=== PATIENT | female | born 1935 | race Caucasian/White ===

== ENCOUNTER 2017-05-12 09:38 | Outpatient (CLI) | payer MEDICARE, BC ==
[~2017-05-12] VITALS: Ht 154.9 cm; Wt 58.2 kg
[2017-05-12] VITALS (7 sets, daily range): BP systolic 116–207; BP diastolic 59–96; PULSE 74–93; TEMP 97.8–98
[~2017-05-12 09:38] MED LIST: ALEVE 220MG220 MG PO; CARDIZEM CD 30300 MG PO; FEMARA PO; PREDNISONE10 MG PO
[2017-05-12] MEDS ORDERED: SINGULAIR 110 MG/TAB PO (10:11)
== END 2017-05-12 17:30 ==
LOC: COL.CAR 09:38
DX: M80.88XA Other osteoporosis with current pathological fracture, vertebra(e), initial encounter for fracture (principal); S22.058A Other fracture of T5-T6 vertebra, initial encounter for closed fracture; Z85.3 Personal history of malignant neoplasm of breast; Z88.1 Allergy status to other antibiotic agents; Z88.0 Allergy status to penicillin
CPT/HCPCS: J0360; J2250; J3010

== ENCOUNTER 2017-07-07 10:10 | Outpatient (CLI) | payer MEDICARE, BC ==
[2017-07-07] VITALS (8 sets, daily range): BP systolic 123–174; BP diastolic 77–104; PULSE 84–107; TEMP 98.3
[~2017-07-07] VITALS: Ht 155 cm; Wt 61.3 kg
[~2017-07-07 10:10] MED LIST changes: +PREDNISONE 5MG5 MG PO; -PREDNISONE10 MG PO; +SINGULAIR 110 MG/TAB PO
[2017-07-07] MEDS ORDERED: ARICEPT 5MG PO (11:18)
[2017-07-07] MEDS ORDERED: K-DUR 10 MEQ T10 MEQ PO (11:19)
[2017-07-07] MEDS ORDERED: COZAAR100 MG PO (11:19)
[2017-07-07] MEDS ORDERED: MURO-128 5% OP3.5 GM OP (11:20)
[2017-07-07] MEDS ORDERED: FLOVENT 44MCG I13 GM IH (11:21)
[2017-07-07] MEDS ORDERED: ADVIL200 MG PO (11:22)
[2017-07-07] MEDS ORDERED: ULTRAM 50MG TAB50 MG PO (11:23)
== END 2017-07-07 16:41 | disposition home or self-care (01) ==
LOC: COL.CAR 10:10
DX: M48.54XA Collapsed vertebra, not elsewhere classified, thoracic region, initial encounter for fracture (principal); M48.56XA Collapsed vertebra, not elsewhere classified, lumbar region, initial encounter for fracture; I10 Essential (primary) hypertension; F03.90 Unspecified dementia, unspecified severity, without behavioral disturbance, psychotic disturbance, mood disturbance, and anxiety; J45.909 Unspecified asthma, uncomplicated; Z79.52 Long term (current) use of systemic steroids; Z88.1 Allergy status to other antibiotic agents; Z90.11 Acquired absence of right breast and nipple; Z85.3 Personal history of malignant neoplasm of breast
CPT/HCPCS: C1713; J2250; J3010; J7120

== ENCOUNTER 2017-08-21 15:38 | Inpatient (IN) | payer MEDICARE, BC ==
[~2017-08-21] VITALS: Ht 154.9 cm; Wt 57.2 kg
[~2017-08-21 15:38] MED LIST changes: +ADVIL200 MG PO; +ARICEPT 5MG PO; +COZAAR100 MG PO; +FLOVENT 44MCG I13 GM IH; +K-DUR 10 MEQ T10 MEQ PO; +MURO-128 5% OP3.5 GM OP; +ULTRAM 50MG TAB50 MG PO
[2017-08-21 17:29] LABS: BASO % 0.2 % (0.0-2.0); EOS # 0.3 (0.0-0.7); EOS % 2.5 % (0-4.0); GRAN # 7.4 (1.4-6.5); GRAN % 60.6 % (42.2-75.2); HEMATOCRIT 37.5 % (37.0-47.0); HEMOGLOBIN 12.6 g/dl (12.5-16.0); LYMPH # 2.9 (1.2-3.4); MEAN CELL VOLUME 95 fl (80.0-100.0); MEAN CORPUSCULAR HEMOGLOBIN 32 pg (27.0-31.0); MEAN CORPUSCULAR HGB CONC 34 g/dl (33.0-37.0); MEAN PLATELET VOLUME 9.1 fl (7.4-10.4); MONO # 1.5 (0.1-0.6); MONO % 11.9 % (1.7-9.3); PLATELET COUNT 384 K/mm3 (130-400); RED BLOOD COUNT 3.93 M/mm3 (4.10-5.30); REDCELL DISTRIBUTION WIDTH-CV 13.4 % (11.5-14.5)
[2017-08-21 17:42] LABS: ALBUMIN 3.6 gm/dL (3.5-5.0); BILIRUBIN,TOTAL 0.2 mg/dL (0.0-1.0); C-REACTIVE PROTEIN 5.6 mg/dL (0.0-0.9); CALCIUM 8.8 mg/dL (8.4-10.2); CREATININE, serum 0.59 mg/dL (0.52-1.25); MAGNESIUM 1.8 mg/dL (1.6-2.3); PHOSPHOROUS 3.6 mg/dL (2.5-4.5); POTASSIUM 3.7 mmol/L (3.4-5.0); TOTAL PROTEIN 6.9 gm/dL (6.4-8.2)
[2017-08-21 17:57] LABS: ERYTHROCYTE SEDIMENTATION RATE 50 mm/hr (0-30)
[2017-08-21] MEDS ORDERED: K-DUR 10 MEQ T10 MEQ PO (20:29)
[2017-08-21] MEDS ORDERED: ARICEPT 5MG PO (20:29)
[2017-08-21 21:56] VITALS: BP 156/63; PULSE 59; TEMP 98.2
[2017-08-21] MEDS ORDERED: LOPRESSOR 225 MG/TAB PO (22:29)
[2017-08-21] MEDS ORDERED: FOSAMAX 70MG TA70 MG PO (22:29)
[2017-08-21] MEDS ORDERED: PROVENTIL0.09 MG/A1 IH (22:36)
[2017-08-21] MEDS ORDERED: OS-CAL 500 + D1 TAB PO (22:37)
[2017-08-21] MEDS ORDERED: TYLENOL 325MG325 MG PO (22:41)
[2017-08-21] MEDS ORDERED: NORCO 325 MG-7.1 TAB PO (22:42)
[2017-08-21 23:07] LABS: COLLECTION METHOD CLEAN CATCH
[2017-08-21 23:12] LABS: MUCOUS Present /lpf; PH 6 (5-8); SQUAMOUS EPITHELIAL 0-2 /hpf; URINE APPEARANCE Clear; URINE BACTERIA None Seen /hpf; URINE BILIRUBIN Negative (NEGATIVE); URINE BLOOD Negative (NEGATIVE); URINE COLOR Yellow; URINE GLUCOSE Negative (NEGATIVE); URINE KETONE Negative (NEGATIVE); URINE LEUKOCYTE ESTERASE Negative (NEGATIVE); URINE NITRATE Negative (NEGATIVE); URINE PROTEIN(semi-quant) Negative (NEGATIVE); URINE UROBILINOGEN Negative (NEGATIVE)
[2017-08-22 00:28] VITALS: BP 151/94; PULSE 58; TEMP 98.3
[2017-08-22 04:31] VITALS: BP 167/84; PULSE 56; TEMP 97.9
[2017-08-22 07:00] LABS: BASO # 0.1 (0.0-0.2); BASO % 0.5 % (0.0-2.0); EOS # 0.3 (0.0-0.7); EOS % 2.9 % (0-4.0); GRAN % 55.8 % (42.2-75.2); HEMATOCRIT 38.4 % (37.0-47.0); HEMOGLOBIN 12.1 g/dl (12.5-16.0); LYMPH # 2.9 (1.2-3.4); LYMPH % 26.9 % (20.0-51.0); MEAN CORPUSCULAR HEMOGLOBIN 32 pg (27.0-31.0); MEAN CORPUSCULAR HGB CONC 32 g/dl (33.0-37.0); MEAN PLATELET VOLUME 10.7 fl (7.4-10.4); MONO # 1.4 (0.1-0.6); MONO % 13.1 % (1.7-9.3); RED BLOOD COUNT 3.75 M/mm3 (4.10-5.30); REDCELL DISTRIBUTION WIDTH-CV 13.6 % (11.5-14.5)
[2017-08-22 07:06] LABS: MEAN CELL VOLUME 102 fl (80.0-100.0)
[2017-08-22 07:07] LABS: PLATELET COUNT 162 K/mm3 (130-400)
[2017-08-22 07:08] LABS: CALCIUM 8.2 mg/dL (8.4-10.2); CREATININE, serum 0.61 mg/dL (0.52-1.25); POTASSIUM 3.8 mmol/L (3.4-5.0)
[2017-08-22 07:34] VITALS: BP 158/93; PULSE 67; TEMP 97.4
[2017-08-22 16:15] VITALS: BP 110/55; PULSE 64; TEMP 97.6
[2017-08-22 19:21] VITALS: BP 158/83; PULSE 65; TEMP 97.9
[2017-08-23 00:11] VITALS: BP 147/72; PULSE 59; TEMP 98.6
[2017-08-23 04:12] VITALS: BP 154/65; PULSE 64; TEMP 98.6
[2017-08-23 06:55] LABS: BASO % 0.2 % (0.0-2.0); EOS # 0.1 (0.0-0.7); GRAN # 5.8 (1.4-6.5); LYMPH % 29.7 % (20.0-51.0); MEAN CELL VOLUME 98 fl (80.0-100.0); MEAN CORPUSCULAR HGB CONC 33 g/dl (33.0-37.0); MEAN PLATELET VOLUME 9.3 fl (7.4-10.4); MONO % 10.3 % (1.7-9.3); RED BLOOD COUNT 3.54 M/mm3 (4.10-5.30); REDCELL DISTRIBUTION WIDTH-CV 13.5 % (11.5-14.5)
[2017-08-23 06:56] LABS: HEMATOCRIT 34.5 % (37.0-47.0); HEMOGLOBIN 11.3 g/dl (12.5-16.0); MEAN CORPUSCULAR HEMOGLOBIN 32 pg (27.0-31.0); PLATELET COUNT 358 K/mm3 (130-400)
[2017-08-23 07:08] LABS: CALCIUM 8.8 mg/dL (8.4-10.2); CREATININE, serum 0.63 mg/dL (0.52-1.25); POTASSIUM 3.8 mmol/L (3.4-5.0)
[2017-08-23 07:31] VITALS: BP 156/82; PULSE 77; TEMP 98.7
[2017-08-23 16:36] VITALS: BP 154/61; PULSE 79; TEMP 98.3
[2017-08-23 19:24] VITALS: BP 178/66; PULSE 74; TEMP 97.7
[2017-08-23 23:18] VITALS: BP 150/69; PULSE 69; TEMP 98.6
[2017-08-24] VITALS (12 sets, daily range): BP systolic 126–190; BP diastolic 59–96; PULSE 73–125; TEMP 97.3–99.5
[2017-08-24 06:24] LABS: BASO % 0.3 % (0.0-2.0); EOS # 0.2 (0.0-0.7); GRAN # 6.5 (1.4-6.5); GRAN % 57.7 % (42.2-75.2); LYMPH # 3.3 (1.2-3.4); LYMPH % 28.9 % (20.0-51.0); MEAN CELL VOLUME 97 fl (80.0-100.0); MEAN CORPUSCULAR HGB CONC 33 g/dl (33.0-37.0); MEAN PLATELET VOLUME 9.6 fl (7.4-10.4); MONO # 1.2 (0.1-0.6); MONO % 10.3 % (1.7-9.3); PLATELET COUNT 341 K/mm3 (130-400); RED BLOOD COUNT 3.62 M/mm3 (4.10-5.30); REDCELL DISTRIBUTION WIDTH-CV 13.6 % (11.5-14.5)
[2017-08-24 06:25] LABS: HEMOGLOBIN 11.5 g/dl (12.5-16.0); MEAN CORPUSCULAR HEMOGLOBIN 32 pg (27.0-31.0)
[2017-08-24 06:37] LABS: CALCIUM 8.8 mg/dL (8.4-10.2); CREATININE, serum 0.6 mg/dL (0.52-1.25); POTASSIUM 3.4 mmol/L (3.4-5.0)
[2017-08-25 00:29] VITALS: BP 157/88; PULSE 86; TEMP 97.6
[2017-08-25 04:20] VITALS: BP 166/90; PULSE 91; TEMP 97.5
[2017-08-25 07:12] LABS: CREATININE, serum 0.73 mg/dL (0.52-1.25); POTASSIUM 3.5 mmol/L (3.4-5.0)
[2017-08-25 08:03] VITALS: BP 147/88; PULSE 100; TEMP 98.6
[2017-08-25 08:16] LABS: BASO # 0.1 (0.0-0.2); BASO % 0.4 % (0.0-2.0); EOS # 0.2 (0.0-0.7); EOS % 1.4 % (0-4.0); GRAN # 9.4 (1.4-6.5); GRAN % 67.5 % (42.2-75.2); HEMATOCRIT 39.9 % (37.0-47.0); HEMOGLOBIN 13.2 g/dl (12.5-16.0); LYMPH # 2.6 (1.2-3.4); LYMPH % 18.9 % (20.0-51.0); MEAN CELL VOLUME 97 fl (80.0-100.0); MEAN CORPUSCULAR HEMOGLOBIN 32 pg (27.0-31.0); MEAN CORPUSCULAR HGB CONC 33 g/dl (33.0-37.0); MEAN PLATELET VOLUME 9.5 fl (7.4-10.4); MONO # 1.5 (0.1-0.6); MONO % 10.8 % (1.7-9.3); PLATELET COUNT 403 K/mm3 (130-400); RED BLOOD COUNT 4.12 M/mm3 (4.10-5.30); REDCELL DISTRIBUTION WIDTH-CV 13.6 % (11.5-14.5)
[2017-08-25 12:41] VITALS: BP 124/82; PULSE 88; TEMP 97.5
[2017-08-25 16:06] VITALS: BP 129/59; PULSE 77; TEMP 97.6
[2017-08-25 19:53] VITALS: BP 151/69; PULSE 92; TEMP 99.7
[2017-08-26 00:03] VITALS: BP 134/63; PULSE 79; TEMP 98.2
[2017-08-26 04:00] VITALS: BP 141/61; PULSE 84; TEMP 98.6
[2017-08-26 06:40] LABS: BASO % 0.2 % (0.0-2.0); EOS # 0.2 (0.0-0.7); EOS % 1.5 % (0-4.0); GRAN # 6.8 (1.4-6.5); GRAN % 61.4 % (42.2-75.2); LYMPH # 2.7 (1.2-3.4); LYMPH % 24.3 % (20.0-51.0); MEAN CELL VOLUME 95 fl (80.0-100.0); MEAN CORPUSCULAR HGB CONC 33 g/dl (33.0-37.0); MEAN PLATELET VOLUME 9.3 fl (7.4-10.4); MONO # 1.3 (0.1-0.6); MONO % 11.4 % (1.7-9.3); PLATELET COUNT 369 K/mm3 (130-400); RED BLOOD COUNT 3.43 M/mm3 (4.10-5.30); REDCELL DISTRIBUTION WIDTH-CV 13.6 % (11.5-14.5)
[2017-08-26 06:56] LABS: HEMATOCRIT 32.4 % (37.0-47.0); HEMOGLOBIN 10.8 g/dl (12.5-16.0); MEAN CORPUSCULAR HEMOGLOBIN 31 pg (27.0-31.0)
[2017-08-26 07:13] LABS: CALCIUM 8.2 mg/dL (8.4-10.2); CREATININE, serum 0.58 mg/dL (0.52-1.25); POTASSIUM 3.2 mmol/L (3.4-5.0)
[2017-08-26 07:53] VITALS: BP 125/51; PULSE 7; TEMP 97.3
[2017-08-26 08:24] VITALS: BP 149/48; PULSE 86; TEMP 98.6
[2017-08-26] MEDS ORDERED: NORCO 325 MG-7.1 TAB PO (10:06)
[2017-08-26 11:24] VITALS: BP 137/59; PULSE 80; TEMP 97.8
== END 2017-08-26 13:42 | DRG 517 ==
LOC: COL.ER 15:38 → MEDICAL 19:46
PROVIDERS: Emergency Medicine; Internal Medicine; Nurse Practitioner Family; Physician Assistant
PROC: 0QU03JZ Supplement Lumbar Vertebra with Synthetic Substitute, Percutaneous Approach (ICD-10-PCS; principal; 2017-08-24)
PROC: 0PU43JZ Supplement Thoracic Vertebra with Synthetic Substitute, Percutaneous Approach (ICD-10-PCS; 2017-08-24)
DX: M80.08XA Age-related osteoporosis with current pathological fracture, vertebra(e), initial encounter for fracture (principal); M35.3 Polymyalgia rheumatica; M31.6 Other giant cell arteritis; Z85.3 Personal history of malignant neoplasm of breast; Z87.891 Personal history of nicotine dependence; I10 Essential (primary) hypertension; J45.909 Unspecified asthma, uncomplicated; F03.90 Unspecified dementia, unspecified severity, without behavioral disturbance, psychotic disturbance, mood disturbance, and anxiety
CPT/HCPCS: 99231-AI; 99232-AI; 99239; A9585; G0378; J2250; J2270; J2704; J3010; J3370; J7030; J7040; J7050; J7120; J7512